=== PATIENT | female | born 1940 | race Caucasian/White ===

== ENCOUNTER 2023-05-11 19:56 | Emergency (ER) | payer MEDICARE, SELFPAY ==
--- NOTE | 2023-05-11 20:03 | ED.URI ---
HPI - URI/Sore Throat General Chief Complaint: Upper Respiratory Infection Stated Complaint: trouble breathing History of Present Illness HPI Narrative: Pt is a 83 y/o CF, PMHx of COPD, hypothyroidism, presents to with 3 day hx of wheezing, increased cough with occasional green sputum, and SOB. She denies associated fevers or chills, orthopnea, calf pain, palpitations or syncope. She reports burning in her upper lung gomez with breathing or coughing but not otherwise. She last used her rescue inhaler 4 hours ago with some relief. She denies any other associated symptoms, modifying factors, known sick contacts or COV exposures. Related Data Home Medications Medication Instructions Recorded Confirmed estradiol 0.5 mg tablet 0.5 mg PO DAILY 12/01/22 01/13/23 levothyroxine 150 mcg capsule 150 mcg PO DAILY 12/01/22 05/11/23 (Tirosint) lorazepam 1 mg tablet 1 mg PO DAILY PRN Anxiety 12/01/22 05/11/23 albuterol sulfate 90 mcg/actuation 1 inh inhalation Q4H 01/13/23 01/13/23 aerosol inhaler fluticasone fur. 200 mcg-umeclid inh inhalation 05/11/23 62.5 mcg-vilant 25 mcg inhalat.powder (Trelegy Ellipta) montelukast 10 mg tablet 10 mg PO DAILY 05/11/23 05/11/23 trazodone 150 mg tablet 75 mg PO HS 05/11/23 05/11/23 venlafaxine 150 mg 150 mg PO DAILY 05/11/23 05/11/23 capsule,extended release 24 hr Allergies Allergy/AdvReac Type Severity Reaction Status Date / Time No Known Allergies Allergy Verified 01/13/23 10:23 Review of Systems Constitutional: Constitutional: Reports no additional constitutional complaints ENT: Reports system reviewed and no additional complaints, except as documented Cardiovascular: Cardiovascular: Reports as per HPI and Reports no additional cardiovascular complaints Respiratory: Respiratory: Reports as per HPI and Reports no additional respiratory complaints [facility] Past Medical History Medical History Asthma Trochanteric bursitis, left hip Trochanteric bursitis, right hip Surgical History Surgical History Presence of right artificial knee joint Family History Family History Mother Dementia Social History Social History Smoking status: Never smoker Lack of Transportation: No Lack of Food: Never True Current Housing: I Have Housing Concerned About Future Housing: No Difficulty Paying Gas/Electric Bills: No Difficulty Paying for Meds: No Currently Unemployed: No Education: Trade/Vocational Certificate Difficulty w/ Childcare or Family Care: No Exam Const: General: healthy appearing, no acute distress and alert Nutritional Appearance: well nourished Orientation/consciousness: patient oriented x3 Limitations: no limitations HENMT: Head: normal to inspection Ears: external ears normal, TM's normal bilaterally and EAC's normal Face and sinus: normal facial exam Mouth: Yes Normal oral and palatal mucosa present and Yes lip normal Teeth and gingiva: dentition normal Throat: posterior oropharynx normal and uvula midline Eyes: Conjunctivae: conjunctivae normal EOM: EOMs intact bilaterally Neck: Neck: normal visual inspection, no lymphadenopathy and no meningeal signs Chest: Chest palpation & inspection: normal inspection of the chest Resp: Effort & Inspection: normal respiratory effort Auscultation: clear to auscultation bilaterally and wheezes (end expiratory wheeze is noted in upper lung gomez) Cardio: Rate: bradycardic Rhythm: regular rhythm Skin: General skin exam: normal color Rashes: no rashes Neuro: General: patient oriented x3, moves all extremities, no meningeal signs, no focal motor deficits and CN's II-XI intact bilaterally Cranial nerves: Yes Nystagmus not present Speech: normal speech Gait exam (Neuro): Normal
[2023-05-11 20:05] VITALS: BP 124/54; PULSE 51; RESP 20; TEMP 36.9; O2SAT 94
[2023-05-11 20:08] VITALS: BP 124/54; PULSE 51; RESP 20; TEMP 36.9; O2SAT 94
== END 2023-05-11 20:21 | disposition home or self-care (01) ==
PROVIDERS: Emergency Provider Nurse Practitioner Family; PCP Internal Medicine
DX: J20.9 Acute bronchitis, unspecified (principal); J45.909 Unspecified asthma, uncomplicated
CPT/HCPCS: 99213; G0463